=== PATIENT | female | born 1965 | race African-American/Black ===

== ENCOUNTER 2025-02-15 13:39 | Observation (INO) ==
--- NOTE | 2025-02-15 14:13 | Emergency Department Note ---
Impression & Plan Ambulatory dysfunction, Bronchiectasis, Ankle fracture, left, Difficulty performing activity of daily living (ADL) ED Provider Note NAME: PAUL HARMAN AGE: 59 SEX: F : 1965 ARRIVES VIA: Ambulance INFORMANT: Patient, friend (Alicia) ED PROVIDER(S): Sp Dixon DO CHIEF COMPLAINT: ambulatory dysfunction HPI: This is a 59-year-old female with the PMHx of bronchiectasis and PEREZ presenting to [facility] for further evaluation of ambulatory dysfunction. Patient is accompanied by friend who provides additional history. They report patient was seen in the emergency department overnight. She reports that she had a syncopal episode in the setting of her bronchiectasis. Recently returned home after a 3- week trip to [place]. Patient states she had extensive workup and was diagnosed with a distal fibular fracture. Currently splinted. Her pain has again been controlled. She is unable to use crutches. Has been attempting to use a walker but unable to perform ADLs and having significant ambulatory dysfunction. Patient states that she does not have resources at home. She lives alone. Patient states she is unable to return safely. They deny fever or chills. No cough or congestion. Denies chest pain or palpitations. No shortness of breath. They deny abdominal pain, nausea and vomiting. No urinary complaints. No recent changes in bowel movements. Patient denies recent changes in medications or OTC supplements. Patient offers no other complaints, today. ADDITIONAL HISTORY OBTAINED: Per HPI Chronic Medical/Social Conditions Affecting Care: Per HPI PAST MEDICAL HISTORY: See Below PAST SURGICAL HISTORY: See Below FAMILY HISTORY: See Below SOCIAL HISTORY: See Below HOME MEDICATIONS: See Below ALLERGIES: See Below VITALS: See Below PHYSICAL EXAMINATION: GENERAL: Alert, well developed, well nourished, no acute distress HEAD: Normocephalic, atraumatic EYES: EOM's intact, sclera anicteric, conjunctiva clear OROPHARYNX: Airway patent and mucous membranes moist LUNGS: No respiratory distress, normal respiratory rate and effort HEART: Well perfused, regular rate ABDOMEN: Abdomen non-distended SKIN: Normal color, dry EXTREMITIES: No gross deformities, no edema, LLE in splint, normal perfusion and sensation NEURO: Alert, oriented x3, appropriate for age, moves all four extremities, normal speech MEDICAL DECISION MAKING: Differential diagnoses includes but not limited to ambulatory dysfunction, deconditioning, failure to perform ADLs In summary, this is a 59 year old female who presented with ambulatory dysfunction. Differential as above. Nursing notes and pertinent past medical records reviewed. Vital signs reviewed and the patient is intermittently bradycardic but otherwise afebrile and hemodynamically stable. History and presentation revealed I reviewed documentation and workup from last night. Patient did have CTA imaging for pulmonary embolism that was negative. Does have known bronchiectasis. Plain films independently interpreted by me revealed mildly displaced distal fibular fracture. She currently is resting comfortably in a splint. Physical examination revealed []. As a result of my initial evaluation, Given the patient is ambulatory dysfunction, the patient is unsafe to return home. Do feel that she will need longterm or rehabilitation services that she has no resources at home. Discussed with care management. We are unable to provide her further medical equipment in order for her to obtain her ADLs secondary to her insurance. She will need prior authorizations. Patient will require formal evaluations by physical and Occupational Therapy. Patient will be discussed by the hospitalist team for possible admission for observation. Will collect basic labs for monitoring including CBC and CMP. Pain is controlled at this time. Diagnostics interpreted by me include cardiac monitoring as listed below: -Cardiac Monitoring: An order was placed for continuous cardiac monitoring. The monitor shows a rate of 50-60s with regular rhythm. Patient completed laboratory studies and imaging. Results independently interpreted by me are no leukocytosis or anemia. Patient does have mild hyperglycemia without other significant electrolyte derangements. The patient was managed with Observation and discussion with care management. The patient will need to be admitted for observation given her significant ambulatory dysfunction as well as fall risk. She is unable to perform her ADLs. The patient may need rehabilitation services or possible longterm for short course. Patient was discussed with the hospitalist team and they are agreeable to admit the patient for observation. Consults/Care Managements Discussions: Per MDM ER treatment provided: See above Procedures:none Critical Care: None The chart was completed utilizing [employer] voice recognition software. Grammatical errors, random word insertions, pronoun errors, and incomplete sentences are an occasional consequence of this system due to software limitations, ambient noise, and hardware issues. Any formal questions or concerns about the content, text, or information contained within the body of this dictation should be directly addressed to the physician for clarification. Past Med/Surg History Problem List (Updated 02/15/25 @ 19:14 by Sp Dixon DO) Difficulty performing activity of daily living (ADL) (Acute) Ambulatory dysfunction (Acute) Ambulatory dysfunction Closed fibular fracture (Acute) Ankle fracture, left (Acute) Ankle fracture (Acute) Syncope (Acute) Rib pain on right side (Acute) Genitourinary syndrome of menopause Sleep apnea Asthma Cough Bronchiectasis (Acute) Surgical History H/O LEEP Family History Denies family history of Ovarian cancer Breast cancer Colorectal cancer Social History Smoking Status: Never smoker Hx Alcohol Use: No Hx Substance Use: No Preferred Language: Faroese Loftsman/Woman Required: No Beliefs That Will Affect Care: None Current Living Situation: Alone Feels Safe at Home: Yes Safety Concerns: Feels Safe At This Time Assistive Devices: Glasses Allergies Allergies Allergy/AdvReac Type Severity Reaction Status Date / Time No Known Allergies Allergy Verified 02/15/25 14:39 Home Meds Home Medications Medication Instructions Recorded Confirmed albuterol sulfate 90 mcg/actuation 2 puff inhalation Q4H PRN 02/14/25 02/15/25 aerosol inhaler Shortness Of Breath budesonide-formoterol HFA 160 2 inh inhalation BID 02/14/25 02/15/25 mcg-4.5 mcg/actuation aerosol inhaler (Symbicort) tezepelumab-ekko 210 mg/1.91 mL 210 mg subcut MONTHLY 02/14/25 02/15/25 (110 mg/mL) subcutaneous syringe (Tezspire) Previous Rx's Medication Instructions Recorded inhaler,assist devices,access #1 ea 07/19/23 montelukast 10 mg tablet 10 mg PO DAILY #90 tabs 03/17/24 albuterol sulfate 1.25 mg/3 mL 1.25 mg (3 mL) inhalation QID PRN 07/15/24 solution for nebulization shortness of breath or wheezing #90 mL tiotropium bromide 2.5 2 puff inhalation DAILY #1 inhaler 08/07/24 mcg/actuation mist for inhalation (Spiriva Respimat) acetaminophen 300 mg-codeine 15 mg 1 tab PO Q6H PRN pain #10 tabs 02/09/25 tablet Results & Data (ED) Vital Signs Vital Signs - 24 hr 02/15/25 13:53 02/15/25 13:54 Temperature 36.6 C Temperature Source Temporal Artery Scan Pulse Rate 59 L Pulse Rate [Apical] 60 Respiratory Rate 18 20 Respiratory Effort / Characteristics Non-Labored Spontaneous Non-Labored Spontaneous Respiratory Depth Normal Normal Respiratory Pattern Regular Regular Blood Pressure 152/74 H Blood Pressure [Right Arm] 152/74 H Blood Pressure Mean 100 Blood Pressure Mean [Right Arm] 100 Blood Pressure Position Sitting Pulse Oximetry 99 97 Oxygen Delivery Method Room Air Room Air Sepsis Recent Fever Within 48 Hours No Sepsis New/Unexplained Change in Mental Status N/A Sepsis Action Taken by Nursing No Action Required Laboratory Data 02/15/25 14:46 02/15/25 14:46 Lab Results 02/15/25 Range/Units 14:46 WBC 10.76 (4.8-10.8) K/ul RBC 4.97 (4.20-5.40) M/uL Hgb 13.3 (12.0-16.0) g/dl Hct 40.9 (37.0-47.0) % MCV 82.3 (80.0-100.0) fL MCH 26.8 (25.0-34.0) pg MCHC 32.5 (32.0-36.0) g/dL RDW Std Deviation 40.8 (36.4-46.3) fL RDW Coeff of Davina 13.8 (11.5-14.5) % Plt Count 248 (130-400) K/uL MPV 11.2 (9.4-12.4) fL Immature Gran % (Auto) 0.4 % Neut % (Auto) 63.7 % Lymph % (Auto) 27.1 % Bennett % (Auto) 7.8 % Eos % (Auto) 0.7 % Baso % (Auto) 0.3 % Neut # (Auto) 6.86 H (1.40-6.50) K/uL Lymph # (Auto) 2.92 (1.20-3.40) K/uL Bennett # (Auto) 0.84 H (0.11-0.59) K/uL Eos # (Auto) 0.07 (0.00-0.50) K/uL Baso # (Auto) 0.03 (0.00-0.20) K/uL Immature Gran # (Auto) 0.04 (0.01-0.20) K/uL Sodium 138 (136-145) mmol/L Potassium 3.6 (3.5-5.1) mmol/L Chloride 104 (98-107) mmol/L Carbon Dioxide 26 (21-32) mmol/L Anion Gap 8 (3-11) BUN 22 (6-23) mg/dl Creatinine 0.80 (0.6-1.2) mg/dl Est Cr Clr Drug Dosing Not Reportable eGFR 84.30 BUN/Creatinine Ratio 27.5 H (10-20) Glucose 220 H (70-99(Fasting)) mg/dl Calcium 8.6 (8.6-10.3) mg/dl Magnesium 2.0 (1.7-2.4) mg/dl Total Bilirubin 1.0 (0.2-1.0) mg/dl AST 12 L (13-39) U/L ALT 13 (7-52) U/L Alkaline Phosphatase 92 (34-104) U/L Total Protein 6.8 (6.0-8.3) gm/dl Albumin 3.6 (3.4-5.0) gm/dl Globulin 3.2 (2.5-4.0) gm/dl Albumin/Globulin Ratio 1.1 (0.9-2) Procalcitonin 0.04 (0-0.5) ng/ml TSH 0.442 (0.300-4.500) uIu/ml Administered Medications Discontinued Medications Ceftriaxone Sodium (Rocephin) 2,000 mg in 50 mls @ 100 mls/hr IV 1645 ONE Stop: 02/15/25 17:14 Last Infusion: 02/15/25 18:04 Dose: Infused Documented By: Admin: 02/15/25 17:14 Dose: 100 mls/hr Documented By: KMF Discharge Plan Visit Data Chief Complaint: Leg Injury/Pain Stated Complaint: LEG PAIN ED Provider: Sp Dixon Discharge Problem: Ambulatory dysfunction, Bronchiectasis, Ankle fracture, left, Difficulty performing activity of daily living (ADL) Patient Disposition: Admitted As Inpatient Condition: Good Discharge Instructions Interventions: ED Discharge Assessment Last Done: 02/15/25 16:58
[2025-02-15 15:05] LABS: Hematocrit (blood only) 40.9 % (37.0-47.0); Hemoglobin 13.3 g/dl (12.0-16.0); Immature Granulocytes # (auto) 0.04 K/uL (0.01-0.20); Immature Granulocytes % (auto) 0.4 %; Mean Corpuscular Hemoglobin 26.8 pg (25.0-34.0); Mean Corpuscular Volume 82.3 fL (80.0-100.0); Platelet Count 248 K/uL (130-400); RDW Standard Deviation 40.8 fL (36.4-46.3); Red Blood Count 4.97 M/uL (4.20-5.40); White Blood Count 10.76 K/ul (4.8-10.8)
--- NOTE | 2025-02-15 15:19 | History & Physical Report ---
Date of Service February 15, 2025 Assessment & Plan (1) Ambulatory dysfunction: (2) Closed fibular fracture: (3) Syncope: (4) Bronchiectasis: Plan This is a 59 year old female with past medical history of bronchiectasis who presented to the ED on 02/15/2025 secondary to ambulatory dysfunction. #Ambulatory dysfunction left ankle XR: acute nondisplaced oblique distal fibular fracture, lateral soft tissue swelling right ankle XR: negative Orthopedics consulted for fibular fx, appreciate recommendations PT/OT consulted, appreciate recommendations Scheduled Tylenol for pain. Toradol prn Fall precautions. #Syncope w/ syncopal episode 02/14 in the heat while wearing a jacket. Preceding symptoms include not feeling well. Troponin negative x 2 on 02/14. CBC w/ leukocytosis on 02/14 but now WNL BMP, procal, TSH, & mag all pending Urinalysis + for UTI --> UC pending Start Rocephin 2g IV q24h & tailor as needed based on culture results. Obtain echocardiogram. #Bronchiectasis CXR negative Chest CTA negative Continue home inhalers & Montelukast DVT prophylaxis: Lovenox Code: DNR/DNI Case discussed w/ Dr. Murray at time of admission Updated friend at bedside 02/15 History of Present Illness Primary Care Provider: Veronica Echevarria DO This is a 59 year old female with past medical history of bronchiectasis who presented to the ED on 02/15/2025 secondary to ambulatory dysfunction. Aguilar was seen and examined this afternoon. She reports that yesterday she was at the [employer] festival where she had a syncopal episode while talking to her friend. She states she was recently on a trip to [place] in which the cooler weather exacerbated her bronchiectasis symptoms but since she returned home her "usual" symptoms have been under control. Her friend did report that yesterday prior to her syncopal episode she was not feeling well. She was seen in the ED yesterday evening & diagnosed with a left distal fibular fracture. She had a negative CXR & chest CTA while here as well. She was sent home with her left leg in a sugar tong splint & crutches. She reports that after returning home she was unable to ambulate well around her house. Her friend states that she has had issues getting around & was unable to help her as well. Her major complaint is pain in her lower extremities. Reports her right leg also hurts to ambulate on which is her main issue of getting around. She denied CP or SOB. Denied abdominal pain, nausea, vomiting. Denied urinary urgency, frequency, dysuria, or hematuria. Denied LE edema. While in the ED, she had labs which are still pending. Code discussion took place with the patient and she confirmed a DNR/DNI status. Allergies Allergy/AdvReac Type Severity Reaction Status Date / Time No Known Allergies Allergy Verified 02/15/25 14:39 Home Medications Medication Instructions Recorded Confirmed Type inhaler,assist devices,access #1 ea 07/19/23 02/02/25 Rx montelukast 10 mg tablet 10 mg PO DAILY #90 tabs 03/17/24 02/15/25 Rx albuterol sulfate 1.25 mg/3 mL 1.25 mg (3 mL) inhalation QID PRN 07/15/24 02/15/25 Rx solution for nebulization shortness of breath or wheezing #90 mL tiotropium bromide 2.5 2 puff inhalation DAILY #1 inhaler 08/07/24 02/15/25 Rx mcg/actuation mist for inhalation (Spiriva Respimat) albuterol sulfate 90 mcg/actuation 2 puff inhalation Q4H PRN 02/14/25 02/15/25 History aerosol inhaler Shortness Of Breath budesonide-formoterol HFA 160 2 inh inhalation BID 02/14/25 02/15/25 History mcg-4.5 mcg/actuation aerosol inhaler (Symbicort) tezepelumab-ekko 210 mg/1.91 mL 210 mg subcut MONTHLY 02/14/25 02/15/25 History (110 mg/mL) subcutaneous syringe (Tezspire) acetaminophen 500 mg tablet 1,000 mg (2 x 500 mg) PO Q8 PRN 02/19/25 Rx (Tylenol Extra Strength) pain #30 tabs blood sugar diagnostic (OneTouch #100 ea 02/19/25 Rx Verio test strips) blood-glucose meter (OneTouch #1 ea 02/19/25 Rx Verio Flex Meter) cholecalciferol (vitamin D3) 25 50 mcg (2 x 25 mcg (1,000 unit)) 02/19/25 Rx mcg (1,000 unit) capsule PO QAM #60 caps enoxaparin 40 mg/0.4 mL 40 mg (0.4 mL) subcut QPM 10 days 02/19/25 Rx subcutaneous syringe (Lovenox) #4 mL lancets 33 gauge (Nikia Ko #100 ea 02/19/25 Rx Plus Lancet) metformin 500 mg tablet,extended 500 mg PO BIDM #60 tabs 02/19/25 Rx release 24 hr Past Med/Surg History Problem List Vitamin D deficiency Type 2 diabetes mellitus Difficulty performing activity of daily living (ADL) (Acute) Ambulatory dysfunction (Acute) Ambulatory dysfunction Closed fibular fracture (Acute) Ankle fracture, left (Acute) Ankle fracture (Acute) Syncope (Acute) Rib pain on right side (Acute) Genitourinary syndrome of menopause Sleep apnea Asthma Cough Bronchiectasis (Acute) Surgical History H/O LEEP Family History Denies family history of Ovarian cancer Breast cancer Colorectal cancer Social History Smoking Status: Never smoker Hx Alcohol Use: No Hx Substance Use: No Preferred Language: Vincentian Communication Ability: Effective Artist Agent Required: No Beliefs That Will Affect Care: None Current Living Situation: Alone Feels Safe at Home: Yes Assistive Devices: Walker Physical Exam Constitutional: WN, WD, lying in bed resting comfortably Eyes: PERRL, conjunctivae normal, anicteric sclerae Respiratory: normal respiratory effort, lungs clear to auscultation Cardiovascular: RRR, no murmur, no edema Gastrointestinal (Abdomen): normal bowel sounds, soft, nontender, no hepatosplenomegaly Musculoskeletal: left lower extremity w/ splint in place Skin: no rashes, warm and dry Neurologic: PERRL, EOMI, accommodation nl, no face palsy, no dysarthria Psychiatric: A+Ox3, euthymic affect Results & Data Results & Data Vital Signs (Past 12 Hours) Vital Signs Temp Pulse Pulse Resp BP BP Pulse Ox 02/15/25 13:54 36.6 C 59 L 20 152/74 H 97 02/15/25 13:53 60 18 152/74 H 99 O2 Del Method 02/15/25 13:54 Room Air 02/15/25 13:53 Room Air Supervising Physician Co-Signing Physician Notes During face to face encounter, I obtained a history and physical examination, discussed plan of care with patient and answered any questions. I discussed plan of care with AGA Roland. I reviewed above note and agree with it except for the following: Patient will be admitted with ambulatory dysfunction. Patient with a lower extremity fracture, will consult ortho. Await input from PT. PG Care Time/CCT Total # of Minutes Spent Total Time Spent with Patient: Total time spent is greater than 50% in coordination of care (as documented) at patient's floor/unit and/or counseling patient: Coding Level of Care Code 63914 INT INP/OBS CARE 75MIN Diagnoses Ambulatory dysfunction R26.2 Closed fibular fracture S82.65XA Encounter type: initial encounter Fibula location: lateral malleolus Fracture alignment: nondisplaced Laterality: left Syncope R55 Syncope type: unspecified Bronchiectasis without complication J47.9 Bronchiectasis type: uncomplicated (2) Closed fibular fracture Encounter type: initial encounter Fibula location: lateral malleolus Fracture alignment: nondisplaced Laterality: left Qualified Code(s): S82.65XA - Nondisplaced fracture of lateral malleolus of left fibula, initial encounter for closed fracture (3) Syncope Syncope type: unspecified Qualified Code(s): R55 - Syncope and collapse (4) Bronchiectasis Bronchiectasis type: uncomplicated Qualified Code(s): J47.9 - Bronchiectasis, uncomplicated
[2025-02-15 15:23] LABS: Alanine Aminotransferase 13 U/L (7-52); Albumin Globulin Ratio 1.1 (0.9-2); Alkaline Phosphatase 92 U/L (34-104); Anion Gap 8 (3-11); Bilirubin,Total 1.0 mg/dl (0.2-1.0); Blood Urea Nitrogen 22 mg/dl (6-23); Calcium 8.6 mg/dl (8.6-10.3); Carbon Dioxide 26 mmol/L (21-32); Chloride 104 mmol/L (98-107); Globulin 3.2 gm/dl (2.5-4.0); Glucose 220 mg/dl (70-99(Fasting)); Potassium 3.6 mmol/L (3.5-5.1); Sodium 138 mmol/L (136-145); Total Protein 6.8 gm/dl (6.0-8.3)
[2025-02-15 15:45] LABS: Magnesium 2.0 mg/dl (1.7-2.4)
[2025-02-15 15:59] LABS: Thyroid Stimulating Hormone 0.442 uIu/ml (0.300-4.500)
[2025-02-15] MEDS: cefTRIAXone SODIUM 2,000 MG/50 ML BAG IV ONE (17:14)
[2025-02-15] MEDS ORDERED: ALBUTEROL HFA 8 GM INHALER INH PRN (17:39)
[2025-02-15] MEDS ORDERED: ALBUTEROL 0.083% NEBU SOLN 3 ML VIAL INH PRN (17:51)
[2025-02-15] MEDS: ENOXAPARIN INJ 40 MG/0.4 ML SYR SQ SCH (20:15)
[2025-02-15] MEDS: ACETAMINOPHEN 500 MG TAB PO SCH (21:04)
[2025-02-16 07:14] LABS: Hematocrit (blood only) 40.3 % (37.0-47.0); Hemoglobin 12.8 g/dl (12.0-16.0); Mean Corpuscular Hemoglobin 26.2 pg (25.0-34.0); Mean Corpuscular Volume 82.6 fL (80.0-100.0); Platelet Count 220 K/uL (130-400); RDW Standard Deviation 41.3 fL (36.4-46.3); Red Blood Count 4.88 M/uL (4.20-5.40); White Blood Count 8.85 K/ul (4.8-10.8)
[2025-02-16] MEDS: FLUTICASONE/VILANTEROL 200/25MCG 14 PUFFS/INHALER INH SCH (08:21)
[2025-02-16] MEDS: MONTELUKAST SODIUM 10 MG TABLET PO SCH (08:21)
[2025-02-16] MEDS: UMECLIDINIUM BROMIDE 62.5MCG/BLISTER 7 PUFFS/INHALER INH SCH (08:22)
[2025-02-16 10:37] LABS: Anion Gap 10.0 (3-11); Calcium 8.2 mg/dl (8.6-10.3); Carbon Dioxide 23.0 mmol/L (21-32); Chloride 106.0 mmol/L (98-107); Potassium 3.7 mmol/L (3.5-5.1); Sodium 139.0 mmol/L (136-145)
[2025-02-16 10:43] LABS: Blood Urea Nitrogen 17.0 mg/dl (6-23); Creatinine Clr Calc Pharmacy 98.9 ml/min; Glucose 195.0 mg/dl (70-99(Fasting))
[2025-02-16] MEDS ORDERED: CARBOHYDRATES FOR HYPOGLYCEMIA PO PRN (11:22)
[2025-02-16] MEDS ORDERED: DEXTROSE 50% 50 ML SYRINGE IV PRN (11:22)
[2025-02-16] MEDS ORDERED: GLUCAGON FOR INJ 1 MG VIAL SQ PRN (11:22)
[2025-02-16] MEDS ORDERED: GLUCOSE 10 TAB/TUBE PO PRN (11:22)
[2025-02-16] MEDS ORDERED: GLUCOSE 40% GEL 15 GM TUBE PO PRN (11:22)
--- NOTE | 2025-02-16 12:16 | XCELERA ---
[id number] [id number]
[2025-02-16] MEDS: INSULIN ASPART PER UNIT CHARGE SC SCH (12:34)
[2025-02-16 12:38] LABS: Hemoglobin A1C 8.9 % (4.5-5.6)
[2025-02-16] MEDS: cefTRIAXone SODIUM 2,000 MG/50 ML BAG IV SCH (15:01)
[2025-02-16] MEDS ORDERED: cefTRIAXone SODIUM 2,000 MG/50 ML BAG IV SCH (16:00)
--- NOTE | 2025-02-16 16:40 | Orthopedic Consultation ---
Date of Consultation February 16, 2025 Assessment & Plan (1) Ankle fracture, left: (2) Bronchiectasis: (3) Ambulatory dysfunction: (4) Type 2 diabetes mellitus: Plan This is a 59-year-old female who is being admitted for ambulatory dysfunction and potential placement with a left-sided distal fibular fracture. The patient sustained this fracture yesterday. She was seen in the emergency department and discharged but then returned to because of ambulatory dysfunction. I long discussion the patient regarding the nature of this injury. We discussed in great detail the pathoanatomy, pathophysiology, treatment options. I expressed to the patient that distal fibular fractures can be managed both operatively and nonoperatively and my recommendation for this is based on the fracture stability determined by an external rotation stress examination. I expressed to her that if fracture displacement or ankle instability is noted on the external rotation stress examination, my recommendation would be for operative management in the form of open reduction internal fixation of her distal fibula with possible open reduction internal fixation of her syndesmosis. The patient's leg is far too swollen to consider any surgical timing at this point. I would like to see the patient in the office next week for skin check and to perform an external rotation stress examination. I will plan to see her in the office early next week and if her external rotation stress examination is positive, we can discuss surgical timing based on her swelling. Patient should be nonweightbearing on the left lower extremity at this time. She should receive DVT prophylaxis Vitamin D level should be checked History of Present Illness Reason for Consultation: Left ankle fracture Attending Physician: Janny Leyva MD History of Present Illness Aguilar was seen and examined this afternoon. She reports that yesterday she was at the [employer] festival where she had a syncopal episode while talking to her friend. She states she was recently on a trip to [place] in which the cooler weather exacerbated her bronchiectasis symptoms but since she returned home her "usual" symptoms have been under control. Her friend did report that yesterday prior to her syncopal episode she was not feeling well. She was seen in the ED yesterday evening & diagnosed with a left distal fibular fracture. She had a negative CXR & chest CTA while here as well. She was sent home with her left leg in a sugar tong splint & crutches. She reports that after returning home she was unable to ambulate well around her house. Her friend states that she has had issues getting around & was unable to help her as well. Her major complaint is pain in her leg. She denied CP or SOB. Denied abdominal pain, nausea, vomiting. Denied urinary urgency, frequency, dysuria, or hematuria. Denied LE edema. Patient notes she has been more comfortable in the hospital. She is hopeful for discharge tomorrow to a rehab facility. Allergies Allergy/AdvReac Type Severity Reaction Status Date / Time No Known Allergies Allergy Verified 02/15/25 14:39 Home Medications Medication Instructions Recorded Confirmed Type inhaler,assist devices,access #1 ea 07/19/23 02/02/25 Rx montelukast 10 mg tablet 10 mg PO DAILY #90 tabs 03/17/24 02/15/25 Rx albuterol sulfate 1.25 mg/3 mL 1.25 mg (3 mL) inhalation QID PRN 07/15/24 02/15/25 Rx solution for nebulization shortness of breath or wheezing #90 mL tiotropium bromide 2.5 2 puff inhalation DAILY #1 inhaler 08/07/24 02/15/25 Rx mcg/actuation mist for inhalation (Spiriva Respimat) acetaminophen 300 mg-codeine 15 mg 1 tab PO Q6H PRN pain #10 tabs 02/09/25 02/15/25 Rx tablet albuterol sulfate 90 mcg/actuation 2 puff inhalation Q4H PRN 02/14/25 02/15/25 History aerosol inhaler Shortness Of Breath budesonide-formoterol HFA 160 2 inh inhalation BID 02/14/25 02/15/25 History mcg-4.5 mcg/actuation aerosol inhaler (Symbicort) tezepelumab-ekko 210 mg/1.91 mL 210 mg subcut MONTHLY 02/14/25 02/15/25 History (110 mg/mL) subcutaneous syringe (Tezspire) Patient History Surgical History H/O LEEP Family History Denies family history of Ovarian cancer Breast cancer Colorectal cancer Social History Smoking Status: Never smoker Hx Alcohol Use: No Hx Substance Use: No Preferred Language: Faroese [employer] [place] Manager Required: No Beliefs That Will Affect Care: None Current Living Situation: Alone Feels Safe at Home: Yes Safety Concerns: Feels Safe At This Time Assistive Devices: Glasses Review of Systems Review of Systems: All systems reviewed & are unremarkable except as noted in HPI & below Physical Exam Physical Exam: On physical examination, the patient's left lower extremity is currently resting in a splint. She wiggles all of her toes. She has mild to moderate soft tissue swelling noted in her foot. Results & Data Vital Signs (Past 12 Hours) Vital Signs Temp Pulse Resp BP Pulse Ox O2 Del Method 02/16/25 11:28 36.7 C 59 L 16 133/79 100 Room Air 02/16/25 07:25 36.8 C 53 L 17 128/79 100 Room Air Diagnostic Findings X-rays left ankle taken previously were personally interpreted and reviewed. These demonstrate a Wahl B distal fibular fracture that is minimally displaced.
--- NOTE | 2025-02-16 19:27 | Hospitalist Progress Note ---
Date of Service February 16, 2025 Assessment & Plan (1) Ambulatory dysfunction: (2) Closed fibular fracture: (3) Syncope: (4) Type 2 diabetes mellitus: Plan This is a 59 year old female with past medical history of bronchiectasis on frequent prednisone who presented to the ED on 02/15/2025 secondary to ambulatory dysfunction after a fall from syncope the day prior in which she sustained a left distal fibular fracture #Ambulatory dysfunction/left distal fibular fracture-left ankle XR: acute nondisplaced oblique distal fibular fracture, lateral soft tissue swelling ;right ankle XR: negative. On and off prednisone for many decades likely contributing osteoporosis Orthopedics consulted for fibular fx, appreciate recommendations-plan for nonweightbearing to the LLE, follow-up in 1 week in the office for skin check and to perform an external rotation stress examination to determine if needs surgery or not - Continue DVT prophylaxis with Lovenox - Check vitamin D level in the morning - Pain control with Toradol and Tylenol as needed - Elevate lower extremity when possible - Maintain splint -Await PT/OT consults #Syncope-w/ syncopal episode 02/14 in the heat while wearing a jacket. Preceding symptoms include not feeling well. Orthostatic vital signs here are negative. She was tapering down on prednisone but is not a chronic prednisone user. It is possible that she was also dehydrated from hyperglycemia and that she has newly diagnosed diabetes.. Troponin negative x 2 on 02/14. ECG without ischemic changes Echo here negative. Electrolytes and TSH normal. With abnormal UA but no urinary symptoms so likely asymptomatic bacteriuria -Treat hyperglycemia - Follow BMP, CBC in the morning #Bronchiectasis-chronic and causing ongoing cough and shortness of breath for many years. She has been off and on prednisone for decades period CXR negative, chest CTA negative. Follows with allergy/immunology and pulmonology -Continue home inhalers & Montelukast - Gets infusions of tezepelumab monthly #DM2-patient with hyperglycemia here and HgbA1c checked and elevated 8.9%. Likely secondary to chronic steroid use and obesity - Start BSG's and supplemental NovoLog - Will likely need to start metformin and could consider GLP-1 as an outpatient #Asymptomatic bacteriuria-UA somewhat abnormal but patient is completely asymptomatic. Urine culture pending - Can discontinue antibiotics - Follow-up urine culture DVT prophylaxis: Lovenox Disposition-awaiting PT/OT evaluations to see if needs rehab placement Admission and Anticipated Discharge Date Admission Date: February 15, 2025 Subjective Patient reports some pain in the left ankle. She has been a little bit stronger in the right lower extremity today and was able to ambulate to the bathroom and back using the walker. She is still awaiting orthopedics evaluation and physical therapy evaluation. She reports she takes prednisone frequently over the years and we discussed her osteo porosis most likely and new diagnosis of diabetes given elevated blood sugars. She does report that she felt faint before she passed out and that she has passed out like this in the past. Prior to the last few weeks of being on prednisone, she had not been on any prednisone for 6 months. Physical Exam Constitutional: WD/WN, vitals as above Respiratory: normal respiratory effort, lungs clear to auscultation Cardiovascular: RRR, no murmur, no edema Gastrointestinal (Abdomen): normal bowel sounds, soft, nontender, no hepatosplenomegaly Musculoskeletal: Left leg/foot/ankle in splint with Mickey wrap not removed, sensation in the distal left toes intact Psychiatric: A+Ox3, euthymic affect Results & Data Results & Data Vital Signs (Past 12 Hours) Vital Signs Temp Pulse Resp BP Pulse Ox O2 Del Method 02/16/25 11:28 36.7 C 59 L 16 133/79 100 Room Air 02/16/25 07:25 36.8 C 53 L 17 128/79 100 Room Air Laboratory Results CBC, BMP, HgbA1c, urine culture reviewed PG Care Time/CCT Total # of Minutes Spent Total Time Spent with Patient: Total time spent is greater than 50% in coordination of care (as documented) at patient's floor/unit and/or counseling patient: Coding Level of Care Code 36190 SUB INP/OBS CARE 2/35MIN Diagnoses Ambulatory dysfunction R26.2 Closed fibular fracture S82.65XA Encounter type: initial encounter Fibula location: lateral malleolus Fracture alignment: nondisplaced Laterality: left Syncope R55 Syncope type: unspecified Type 2 diabetes mellitus E11.9 (2) Closed fibular fracture Encounter type: initial encounter Fibula location: lateral malleolus Fracture alignment: nondisplaced Laterality: left Qualified Code(s): S82.65XA - Nondisplaced fracture of lateral malleolus of left fibula, initial encounter for closed fracture (3) Syncope Syncope type: unspecified Qualified Code(s): R55 - Syncope and collapse
[2025-02-17 06:42] LABS: Hematocrit (blood only) 39.1 % (37.0-47.0); Hemoglobin 12.6 g/dl (12.0-16.0); Immature Granulocytes # (auto) 0.04 K/uL (0.01-0.20); Immature Granulocytes % (auto) 0.5 %; Mean Corpuscular Hemoglobin 26.5 pg (25.0-34.0); Mean Corpuscular Volume 82.3 fL (80.0-100.0); Platelet Count 218 K/uL (130-400); RDW Standard Deviation 40.7 fL (36.4-46.3); Red Blood Count 4.75 M/uL (4.20-5.40); White Blood Count 7.74 K/ul (4.8-10.8)
[2025-02-17] MEDS: KETOROLAC TROMETHAMINE 15 MG/ML VIAL IV PRN (06:59)
[2025-02-17 07:12] LABS: Anion Gap 7.0 (3-11); Calcium 8.3 mg/dl (8.6-10.3); Carbon Dioxide 26.0 mmol/L (21-32); Chloride 106.0 mmol/L (98-107); Potassium 3.5 mmol/L (3.5-5.1); Sodium 139.0 mmol/L (136-145)
[2025-02-17 07:17] LABS: Blood Urea Nitrogen 17.0 mg/dl (6-23); Creatinine Clr Calc Pharmacy 89.7 ml/min; Glucose 196.0 mg/dl (70-99(Fasting))
--- NOTE | 2025-02-17 16:22 | Hospitalist Progress Note ---
Date of Service February 17, 2025 Assessment & Plan (1) Ambulatory dysfunction: (2) Closed fibular fracture: (3) Syncope: (4) Type 2 diabetes mellitus: (5) Vitamin D deficiency: Plan This is a 59 year old female with past medical history of bronchiectasis on frequent prednisone who presented to the ED on 02/15/2025 secondary to ambulatory dysfunction after a fall from syncope the day prior in which she sustained a left distal fibular fracture #Ambulatory dysfunction/left distal fibular fracture/vitamin D deficiency-left ankle XR: acute nondisplaced oblique distal fibular fracture, lateral soft tissue swelling ;right ankle XR: negative. On and off prednisone for many decades likely contributing to osteoporosis. Orthopedics consulted for fibular fx, appreciate recommendations-plan for nonweightbearing to the LLE, follow-up in 1 week in the office for skin check and to perform an external rotation stress examination to determine if needs surgery or not. Vitamin D level quite low at 12 - Continue DVT prophylaxis with Lovenox - Start vitamin D supplementation 2000 units once daily and consider treatment for osteoporosis as an outpatient - Pain control with Toradol and Tylenol as needed - Elevate lower extremity when possible - Maintain splint - PT/OT recommends rehab #Syncope-w/ syncopal episode 02/14 in the heat while wearing a jacket. Preceding symptoms include not feeling well. Orthostatic vital signs here are negative. She was tapering down on prednisone but is not a chronic prednisone user. It is possible that she was also dehydrated from hyperglycemia and that she has newly diagnosed diabetes.. Troponin negative x 2 on 02/14. ECG without ischemic changes Echo here negative. Electrolytes and TSH normal. With abnormal UA but no urinary symptoms so likely asymptomatic bacteriuria. CBC and BMP remain stable -Treat hyperglycemia #Bronchiectasis-chronic and causing ongoing cough and shortness of breath for many years. She has been off and on prednisone for decades period CXR negative, chest CTA negative. Follows with allergy/immunology and pulmonology -Continue home inhalers & Montelukast - Gets infusions of tezepelumab monthly #DM2-patient with hyperglycemia here and HgbA1c checked and elevated 8.9%. Likely secondary to chronic steroid use and obesity - Continue BSG's and supplemental NovoLog-will add on carb ratio of 1:15 and tighten correction factor down to 30 - Will start metformin 500 mg XR p.o. daily and could consider GLP-1 as an outpatient - Consult health promotion educator #Asymptomatic bacteriuria-UA somewhat abnormal but patient is completely asymptomatic. Urine culture with mixed todd -Have since discontinued antibiotics DVT prophylaxis: Lovenox should be continued for 2 weeks Disposition-awaiting rehab placement-referrals made for supportive employment case manager on 02/17 Admission and Anticipated Discharge Date Admission Date: February 15, 2025 Subjective Patient reports feeling better, pain is controlled. She is able to ambulate with a walker better in the room but still feels like she would benefit from rehab. She is a bit distraught with her new diagnosis of diabetes. She does feel like her cough is returning now that she has been off prednisone for a few days. Physical Exam Constitutional: WD/WN, vitals as above Respiratory: normal respiratory effort, lungs clear to auscultation Cardiovascular: RRR, no murmur, no edema Gastrointestinal (Abdomen): normal bowel sounds, soft, nontender, no hepatosplenomegaly Musculoskeletal: Left toes sensation intact, good cap refill, splint and Mickey wrap on left leg/ankle/foot not removed Psychiatric: A+Ox3, euthymic affect Results & Data Results & Data Vital Signs (Past 12 Hours) Vital Signs Temp Pulse Resp BP BP Pulse Ox O2 Del Method 02/17/25 14:15 36.6 C 65 15 124/80 94 Room Air 02/17/25 07:18 Room Air 02/17/25 07:15 36.7 C 52 L 15 116/79 98 Room Air Laboratory Results CBC, BMP, vitamin D level reviewed PG Care Time/CCT Total # of Minutes Spent Total Time Spent with Patient: Total time spent is greater than 50% in coordination of care (as documented) at patient's floor/unit and/or counseling patient: Coding Level of Care Code 03311 SUB INP/OBS CARE 2/35MIN Diagnoses Ambulatory dysfunction R26.2 Closed fibular fracture S82.65XA Encounter type: initial encounter Fibula location: lateral malleolus Fracture alignment: nondisplaced Laterality: left Syncope R55 Syncope type: unspecified Type 2 diabetes mellitus E11.9 Vitamin D deficiency E55.9 (2) Closed fibular fracture Encounter type: initial encounter Fibula location: lateral malleolus Fracture alignment: nondisplaced Laterality: left Qualified Code(s): S82.65XA - Nondisplaced fracture of lateral malleolus of left fibula, initial encounter for closed fracture (3) Syncope Syncope type: unspecified Qualified Code(s): R55 - Syncope and collapse
[2025-02-18 08:16] LABS: Creatinine Clr Calc Pharmacy 101.6 ml/min
[2025-02-18] MEDS: CHOLECALCIFEROL 25 MCG (1000 UNITS) TAB PO SCH (08:40)
[2025-02-18] MEDS ORDERED: CHOLECALCIFEROL 25 MCG (1000 UNITS) TAB PO SCH (09:00)
--- NOTE | 2025-02-18 15:55 | Hospitalist Progress Note ---
Date of Service February 18, 2025 Assessment & Plan (1) Ambulatory dysfunction: (2) Closed fibular fracture: (3) Syncope: (4) Type 2 diabetes mellitus: (5) Vitamin D deficiency: Plan This is a 59 year old female with past medical history of bronchiectasis on frequent prednisone who presented to the ED on 02/15/2025 secondary to ambulatory dysfunction after a fall from syncope the day prior in which she sustained a left distal fibular fracture #Ambulatory dysfunction/left distal fibular fracture/vitamin D deficiency-left ankle XR: acute nondisplaced oblique distal fibular fracture, lateral soft tissue swelling ;right ankle XR: negative. On and off prednisone for many decades likely contributing to osteoporosis. Orthopedics consulted for fibular fx, appreciate recommendations-plan for nonweightbearing to the LLE, follow-up in 1 week in the office for skin check and to perform an external rotation stress examination to determine if needs surgery or not. Vitamin D level quite low at 12 - Continue DVT prophylaxis with Lovenox - Started vitamin D supplementation 2000 units once daily and consider treatment for osteoporosis as an outpatient - Pain control with Toradol and Tylenol as needed - Elevate lower extremity when possible - Maintain splint - PT/OT recommends rehab-maintain nonweightbearing status on left lower extremity #Syncope-w/ syncopal episode 02/14 in the heat while wearing a jacket. Preceding symptoms include not feeling well. Orthostatic vital signs here are negative. She was tapering down on prednisone but is not a chronic prednisone user. It is possible that she was also dehydrated from hyperglycemia and that she has newly diagnosed diabetes.. Troponin negative x 2 on 02/14. ECG without ischemic changes Echo here negative. Electrolytes and TSH normal. With abnormal UA but no urinary symptoms so likely asymptomatic bacteriuria. CBC and BMP remain stable -Treated hyperglycemia #Bronchiectasis-chronic and causing ongoing cough and shortness of breath for [place] years. She has been off and on prednisone for decades period CXR negative, chest CTA negative. Follows with allergy/immunology and pulmonology -Continue home inhalers & Montelukast - Gets infusions of tezepelumab monthly #DM2- with hyperglycemia here and HgbA1c checked and elevated 8.9%. Likely secondary to chronic steroid use and obesity - Continue BSG's and supplemental NovoLog-carb ratio of 1:15 and correction factor 30 with range of 100-140 - Started metformin 500 mg XR p.o. daily with dinner and titrate up as an outpatient-could consider GLP-1 as an outpatient - Consult development educator appreciated-recommends One Touch Verio meter, One Touch Verio test strips to check 2 times per day, and One Touch Delica lancets to check 2 times per day #Asymptomatic bacteriuria-UA somewhat abnormal but patient is completely asymptomatic. Urine culture with mixed todd -Have since discontinued antibiotics DVT prophylaxis: Lovenox should be continued for 2 weeks Disposition-awaiting rehab placement-referrals made for caser up on 02/17. Patient is medically stable for discharge Admission and Anticipated Discharge Date Admission Date: February 17, 2025 Subjective Patient reports pain is controlled in the left ankle. She is ambulating with a walker. No chest pains. She has her chronic cough. Physical Exam Constitutional: WD/WN, vitals as above Respiratory: normal respiratory effort, lungs clear to auscultation Cardiovascular: RRR, no murmur, no edema Gastrointestinal (Abdomen): normal bowel sounds, soft, nontender, no hepatosplenomegaly Psychiatric: A+Ox3, euthymic affect Results & Data Results & Data Vital Signs (Past 12 Hours) Vital Signs Temp Pulse Resp BP BP Pulse Ox O2 Del Method 02/18/25 15:39 36.7 C 56 L 20 131/80 99 Room Air 02/18/25 11:12 36.5 C 56 L 16 113/73 96 Room Air 02/18/25 08:01 Room Air Laboratory Results Creatinine reviewed PG Care Time/CCT Total # of Minutes Spent Total Time Spent with Patient: Total time spent is greater than 50% in coordination of care (as documented) at patient's floor/unit and/or counseling patient: Coding Level of Care Code 50913 SUB INP/OBS CARE 08/30MIN Diagnoses Ambulatory dysfunction R26.2 Closed fibular fracture S82.65XA Encounter type: initial encounter Fibula location: lateral malleolus Fracture alignment: nondisplaced Laterality: left Syncope R55 Syncope type: unspecified Type 2 diabetes mellitus E11.9 Vitamin D deficiency E55.9 (2) Closed fibular fracture Encounter type: initial encounter Fibula location: lateral malleolus Fracture alignment: nondisplaced Laterality: left Qualified Code(s): S82.65XA - Nondisplaced fracture of lateral malleolus of left fibula, initial encounter for closed fracture (3) Syncope Syncope type: unspecified Qualified Code(s): R55 - Syncope and collapse
[2025-02-19 15:15] VITALS: RESP 18; TEMP 97.7; O2SAT 96
--- NOTE | 2025-02-19 16:34 | Discharge Summary ---
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 On and off prednisone for many decades likely co ntributing to osteoporosis. Orthopedics consulted for fibular fx, appreciate recommendations-plan for nonweightbearing to the LLE, follow-up in 1 day in the office for skin check and to perform an external rotation stress examination to determine if needs surgery or not. Vitamin D level quite low at 12 - Continue DVT prophylaxis with Lovenox x 2 weeks total - Started vitamin D supplementation 2000 units once daily and consider treatment for osteoporosis as an outpatient - Pain control with Tylenol as needed - Elevate lower extremity - Maintain splint - PT/OT recommends rehab-maintain nonweightbearing status on left lower extremity-xena home with home health, using walker #Syncope-w/ syncopal episode 02/14 in the heat while wearing a jacket. Preceding symptoms include not feeling well. Orthostatic vital signs here are negative. She was tapering down on prednisone but is not a chronic prednisone user. It is possible that she was also dehydrated from hyperglycemia and that she has newly diagnosed diabetes.. Troponin negative x 2 on 02/14. ECG without ischemic changes Echo here negative. Electrolytes and TSH normal. With abnormal UA but no urinary symptoms so likely asymptomatic bacteriuria. CBC and BMP remain stable -Treated hyperglycemia #Bronchiectasis-chronic and causing ongoing cough and shortness of breath for many years. She has been off and on prednisone for decades period CXR negative, chest CTA negative. Follows with allergy/immunology and pulmonology -Continue home inhalers & Montelukast - Gets infusions of tezepelumab monthly #DM2- with hyperglycemia here and HgbA1c checked and elevated 8.9%. Likely secondary to chronic steroid use and obesity - used supplemental NovoLog-carb ratio of 1:15 and correction factor 30 with range of 100-140 and transitioned to metformin 500mg XR po bid with improvement -could consider GLP-1 as an outpatient - Consult nurse informatics educator appreciated-recommends One Touch Verio meter, One Touch Verio test strips to check 2 times per day, and One Touch Delica lancets to check 2 times per day on discharge -f/u with PCP #Asymptomatic bacteriuria-UA somewhat abnormal but patient is completely asymptomatic. Urine culture with mixed todd -Have since discontinued antibiotics DVT prophylaxis: Lovenox should be continued for 2 weeks Disposition-insurance denied acute rehab placement and pt felt she could return home with home health and assistance from family and friends Notes For Next Care Provider Medication Changes From Visit added Lovenox, tylenol, vitamin D, metformin XR Admission HPI Per Admitting Provider This is a 59 year old female with past medical history of bronchiectasis who presented to the ED on 02/15/2025 secondary to ambulatory dysfunction. Aguilar was seen and examined this afternoon. She reports that [place] [employer] [place] where she had a syncopal episode while talking to her friend. She states she was recently on a trip to [place] in which the cooler weather exacerbated her bronchiectasis symptoms but since she returned home her "usual" symptoms have been under control. Her friend did report that yesterday prior to her syncopal episode she was not feeling well. She was seen in the ED yesterday evening & diagnosed with a left distal fibular fracture. She had a negative CXR & chest CTA while here as well. She was sent home with her left leg in a sugar tong splint & crutches. She reports that after returning home she was unable to ambulate well around her house. Her friend states that she has had issues getting around & was unable to help her as well. Her major complaint is pain in her lower extremities. Reports her right leg also hurts to ambulate on which is her main issue of getting around. She denied CP or SOB. Denied abdominal pain, nausea, vomiting. Denied urinary urgency, frequency, dysuria, or hematuria. Denied LE edema. While in the ED, she had labs which are still pending. Code discussion took place with the patient and she confirmed a DNR/DNI status. Discharge Exam Constitutional WD/WN, vitals as above Respiratory normal respiratory effort, lungs clear to auscultation Cardiovascular RRR, no murmur, no edema Gastrointestinal (Abdomen) normal bowel sounds, soft, nontender, no hepatosplenomegaly Musculoskeletal left leg in splint, swelling reduced, left toes NVI and can wiggle toes Psychiatric A+Ox3, euthymic affect Discharge Plan Discharge Items Patient Disposition: Home - Home Health Services Reason For Visit: AMBULATORY DYSFUNCTION,FIBULAR FRACTURE Discharge Diagnosis: Ambulatory dysfunction, left distal fibular fracture New onset diabetes mellitus type 2 Vitamin D deficiency Condition on Discharge: Good Activity: As commented below Exercise/Sports: Wait until after follow-up appointment Weightbearing: Left non-weightbearing Non-emergency contact: Primary Care Provider and Surgeon Call non-emergency contact if: you have any medication questions, your symptoms worsen, your pain is not controlled, your pain is worsening and your temperature is above 101 Follow-up/Referrals: Veronica Echevarria DO [Primary Care Provider] - (Follow-up within 1-2 weeks) Glen Joyner DO [Surgeon] - (Follow-up on 02/20 as scheduled) Diet: Carb Consistent or DM2 Addtl Attending Provider Instructions: You were admitted with a left ankle fracture and had improved pain control and ambulation over the following few days. Please remain nonweightbearing and use a walker to get around. You can take Tylenol as needed for pain. Please continue to keep it elevated and keep the splint in place. Keep your appointment with orthopedics as scheduled for repeat x-rays and further evaluation on 02/20. Please continue on the Lovenox injections once daily in the evenings to help prevent blood clots associated with fractures and being sedentary. As we discussed, you have been diagnosed with diabetes mellitus type 2. Please continue on the metformin that was started and check your blood sugars as directed from the nurse informatics educator. Please follow-up with your primary care physician for further treatment of your diabetes. Your vitamin D level was found to be low and you were started on a vitamin D supplement. Please also discussed treatment of osteoporosis/bone thinning with your primary care physician. Addtl Event Planner Provider Instructions: DIABETES RECOMMENDATIONS: 1.) Lifestyle changes: Aim for regular/balanced meals with protein/fiber thru the day to help balance blood sugar levels and to help minimize post-meal blood sugar spikes Mindful of portion sizes of carbs/starches. 2.) Checking blood sugar: Without Prednisone, check your blood sugar 1x/day or do paired testing. Try to change the time you check from day to day to help guide diet and diabetes medication changes, as needed. With Prednisone, check your blood sugar 2x/day. Check upon waking and before dinner (before and/or after exercise). Notify your provider of blood sugar levels frequently above/below target. 3.) Diabetes medication: You were started on a diabetes pill (Metformin) to help improve blood sugar levels. Take the Metformin with a meal (or even immediately after) to help minimize any stomach upset or diarrhea. Hopefully the Metformin will help stabilize blood sugar levels on and off Prednisone. If not, you may need to try other medications to see what works best. Pending Studies at Discharge: No Stand-Alone Forms: My [facility] Medications and DC Order Prescriptions: New acetaminophen [Tylenol Extra Strength] 500 mg Tablet 1,000 mg PO Q8 PRN (Reason: pain) Qty: 30 0RF Rx Instructions: Tdxc-[id number] metformin 500 mg Tablet Extended Release 24 Hr 500 mg PO BIDM Qty: 60 0RF cholecalciferol (vitamin D3) 25 mcg (1,000 unit) Capsule 50 mcg PO QAM Qty: 60 0RF (DME) blood-glucose meter [OneTouch Verio Flex meter] [facility] See Rx Instructions .Route Qty: 1 0RF Rx Instructions: As directed for glucose testing 2 x/daily (DME) OneTouch Verio test strips Strip See Rx Instructions .Route Qty: 100 0RF Rx Instructions: As directed for glucose testing 2x/day (DME) lancets [OneTouch Delica Plus Lancet] 33 gauge misc See Rx Instructions .Route Qty: 100 0RF Rx Instructions: As directed for glucose testing 2x/day enoxaparin [Lovenox] 40 mg/0.4 mL Syringe 40 mg subcut QPM 10 Days Qty: 4 0RF Continued montelukast 10 mg tablet 10 mg PO DAILY Qty: 90 3RF (DME) inhaler,assist devices,access Device See Rx Instructions .MEDSUPPLY Qty: 1 0RF Rx Instructions: spacer for HFA inhlaer, use as directed albuterol sulfate 1.25 mg/3 mL solution for nebulization 1.25 mg inhalation QID PRN (Reason: shortness of breath or wheezing) Qty: 90 3RF Spiriva Respimat 2.5 mcg/actuation mist 2 puff inhalation DAILY Qty: 1 11RF albuterol sulfate 90 mcg/actuation HFA aerosol inhaler 2 puff inhalation Q4H PRN (Reason: Shortness Of Breath) budesonide-formoterol [Symbicort] 160-4.5 mcg/actuation HFA aerosol inhaler 2 inh inhalation BID Rx Instructions: [employer] Tezspire 210 mg/1.91 mL (110 mg/mL) syringe 210 mg subcut MONTHLY Rx Instructions: LAST TAKEN 02/02/25 INJECT 210 mg subcutaneously EVERY 4 WEEKS APPROVED under medical benefit GOOD 08/26/24-08/25/25 BUY AND BILL Discontinued acetaminophen-codeine 300-15 mg tablet 1 tab PO Q6H PRN (Reason: pain) Qty: 10 0RF Discharge Orders: Discharge Order (Routine); Ordered 02/19/25 Ordered By: Janny Judge/Other Patient Handouts: Type 2 Diabetes Admission Data Admit Date/Time: 02/17/25 16:22 Attending Provider: Janny Leyva Admit Provider: Juan R Murray Primary Care Provider: Veronica Echevarria Other Providers: Curt Lino; Mandy Lua; Shaun Posadas; Sara Lopes; Veronica Barlow; Barrington Corral; Edilia Dacosta; Ras Platt; Zuly Mcmullen; Herbie Lindsay; Ethan Melton; Mirna Childers; Keke North; Hugo Schwab; Kendall Hogue; Jasmyne Rodriguez; Alka Small; Vivian White; Teresa Valdez; Rena Adams; Desiree Rutherford; Curt Byrne; Kendall Hawkins; Alyssa Del Castillo; Tammy Alaniz; [facility]; [place] Other Interventions: Discharge Summary Assessment (RN) Last Done: 02/19/25 17:51 Hospital Stay Data Consultations 02/15/25 17:39 Consult Orthopedic Surgery Routine Discharge Instructions Given to Patient (Per Discharging Provider) You were admitted with a left ankle fracture and had improved pain control and ambulation over the following few days. Please remain nonweightbearing and use a walker to get around. You can take Tylenol as needed for pain. Please continue to keep it elevated and keep the splint in place. Keep your appointment with orthopedics as scheduled for repeat x-rays and further evaluati on on 02/20. Please continue on the Lovenox injections once daily in the evenings to help prevent blood clots associated with fractures and being sedentary. As we discussed, you have been diagnosed with diabetes mellitus type 2. Please continue on the metformin that was started and check your blood sugars as directed from the nurse informatics educator. Please follow-up with your primary care physician for further treatment of your diabetes. Your vitamin D level was found to be low and you were started on a vitamin D supplement. Please also discussed treatment of osteoporosis/bone thinning with your primary care physician. Total Time Total Time Spent Total Time Spent (In Minutes): 35 min Total Time Includes: Examination of the Patient, Discharge Planning, Medication Reconciliation and Communication With Other Providers (Orthopedic Surgery) Coding Level of Care Code 60733 INP/OBS DISCH >30 MIN Diagnoses Ambulatory dysfunction R26.2 Closed fibular fracture S82.65XA Encounter type: initial encounter Fibula location: lateral malleolus Fracture alignment: nondisplaced Laterality: left Syncope R55 Syncope type: unspecified Type 2 diabetes mellitus E11.9 Vitamin D deficiency E55.9
[2025-02-19 17:51] VITALS: BP 122/81; PULSE 59
== END 2025-02-19 19:24 | disposition home health service (06) | DRG 544 ==
LOC: 3E 13:39 → ED 13:39 → SUATTDRO 14:55 → 3E 16:58